=== PATIENT | male | born 1960 | race Caucasian/White ===

== ENCOUNTER 2018-05-27 14:22 | Emergency (ER) | payer MEDICAID ==
[~2018-05-27] VITALS: Ht 172.7 cm; Wt 111.4 kg
[2018-05-27 15:18] LABS: BASOPHILS % (AUTO) 0.4 % (0-1); EOSINOPHILS # (AUTO) 0.2 X10'3 (0-0.9); EOSINOPHILS % (AUTO) 2.7 % (0-6); HEMATOCRIT 46.3 % (42.0-52.0); LYMPHOCYTES # (AUTO) 1.3 X10'3 (1.1-4.8); LYMPHOCYTES % (AUTO) 18.5 % (21-51); MEAN CORPUSCULAR HEMOGLOBIN 30.9 PG (27.0-31.0); MEAN CORPUSCULAR HGB CONC 34.5 g/dL (33.0-36.5); MEAN CORPUSCULAR VOLUME 89.7 FL (78-98); MEAN PLATELET VOLUME 7.6 FL (7.4-10.4); MONOCYTES # (AUTO) 0.5 X10'3 (0-0.9); MONOCYTES % (AUTO) 6.7 % (2-12); NEUTROPHILS # (AUTO) 4.9 X10'3 (1.8-7.7); NEUTROPHILS % (AUTO) 71.7 % (42-75); PLATELET COUNT 212 X10'3 (140-440); RED BLOOD COUNT 5.17 X10'6 (4.70-6.10); RED CELL DISTRIBUTION WIDTH 13.3 % (11.5-14.5); WHITE BLOOD COUNT 6.8 X10'3 (4.5-11.0)
[2018-05-27 15:32] LABS: PARTIAL THROMBOPLASTIN TIME 26 SECONDS (22-32); PROTHROMBIN TIME 10.2 SECONDS (9.0-12.0)
[2018-05-27 15:33] LABS: ALANINE AMINOTRANSFERASE 60 U/L (12-78); ALBUMIN 3.8 G/DL (3.4-5.0); ALKALINE PHOSPHATASE 136 IU/L (46-116); ANION GAP 11 (8-16); ASPARTATE AMINO TRANSFERASE 29 U/L (10-37); BILIRUBIN,TOTAL 0.7 MG/DL (0.1-1.0); BLOOD UREA NITROGEN 17 MG/DL (7-18); BUN/CREATININE RATIO 14.9 (5.4-32.0); CALCIUM 8.5 MG/DL (8.5-10.1); CHLORIDE 102 MMOL/L (99-107); CREATININE 1.14 MG/DL (0.60-1.10); GLUCOSE 301 MG/DL (70-104); POTASSIUM 3.2 MMOL/L (3.5-5.1); SODIUM 141 MMOL/L (135-145); TOTAL CARBON DIOXIDE 28.5 MMOL/L (24-32); TOTAL PROTEIN 7.5 G/DL (6.4-8.2); eGFR 66 ML/MIN
[2018-05-27 18:30] LABS: D-DIMER 0.56 MG/L FEU (0-0.50)
--- NOTE | 2018-05-27 19:29 | NUR ---
VAS CALLED BACK AT 19:28 [address] IN ROUTE TO HOSPITAL
[2018-05-27] MEDS ORDERED: HYDROcodone/acetaminophen 10/325mg tab PO ONE (19:30)
[2018-05-27 20:28] VITALS: BP 167/81
--- NOTE | 2018-05-27 20:31 | NUR ---
VAS IS IN ROOM
--- NOTE | 2018-05-27 20:33 | NUR ---
VASCULAR AT BEDSIDE WITH PT
== END 2018-05-27 21:24 | disposition home or self-care (01) ==
LOC: ER 14:23
DX: I82.813 Embolism and thrombosis of superficial veins of lower extremities, bilateral (principal); I10 Essential (primary) hypertension; J44.9 Chronic obstructive pulmonary disease, unspecified; E11.9 Type 2 diabetes mellitus without complications; Z88.1 Allergy status to other antibiotic agents; Z88.0 Allergy status to penicillin; Z88.8 Allergy status to other drugs, medicaments and biological substances
CPT/HCPCS: 36415; 71045; 80053; 83880; 84484; 85025; 85379; 85610; 85730; 93970; 99284

== ENCOUNTER 2018-06-13 12:29 | Outpatient (CLI) | payer MEDICAID | END 2018-06-13 23:59 | disposition home or self-care (01) | LOC: VAS 12:29 | PROVIDERS: ATTEND Pediatrics | DX: I80.00 Phlebitis and thrombophlebitis of superficial vessels of unspecified lower extremity (principal); I10 Essential (primary) hypertension; E11.9 Type 2 diabetes mellitus without complications; J44.9 Chronic obstructive pulmonary disease, unspecified; Z88.0 Allergy status to penicillin; Z88.6 Allergy status to analgesic agent; Z88.1 Allergy status to other antibiotic agents; Z88.2 Allergy status to sulfonamides | CPT/HCPCS: 93970 ==

== ENCOUNTER 2018-08-28 05:44 | Emergency (ER) | payer MEDICAID ==
[~2018-08-28] VITALS: Ht 172.7 cm; Wt 91.8 kg
[2018-08-28] MEDS ORDERED: morphine 4 MG/ML inj SYRINge IV ONE (07:05)
[2018-08-28] MEDS ORDERED: normal saline 1000ML IV soln IVB ONE (07:05)
[2018-08-28 08:32] LABS: BASOPHILS # (AUTO) 0.1 X10'3 (0-0.2); EOSINOPHILS # (AUTO) 0.1 X10'3 (0-0.9); EOSINOPHILS % (AUTO) 2.5 % (0-6); HEMATOCRIT 39.1 % (42.0-52.0); HEMOGLOBIN 13.8 g/dl (14.0-17.9); LYMPHOCYTES # (AUTO) 1.3 X10'3 (1.1-4.8); LYMPHOCYTES % (AUTO) 25.6 % (21-51); MEAN CORPUSCULAR HEMOGLOBIN 30.8 PG (27.0-31.0); MEAN CORPUSCULAR HGB CONC 35.3 g/dL (33.0-36.5); MEAN CORPUSCULAR VOLUME 87.3 FL (78-98); MEAN PLATELET VOLUME 7.7 FL (7.4-10.4); MONOCYTES # (AUTO) 0.4 X10'3 (0-0.9); MONOCYTES % (AUTO) 6.8 % (2-12); NEUTROPHILS # (AUTO) 3.3 X10'3 (1.8-7.7); NEUTROPHILS % (AUTO) 64.1 % (42-75); PLATELET COUNT 206 X10'3 (140-440); RED BLOOD COUNT 4.48 X10'6 (4.70-6.10); RED CELL DISTRIBUTION WIDTH 13.7 % (11.5-14.5); WHITE BLOOD COUNT 5.2 X10'3 (4.5-11.0)
[2018-08-28 08:44] LABS: ALANINE AMINOTRANSFERASE 61 U/L (12-78); ALBUMIN 3.4 G/DL (3.4-5.0); ALBUMIN/GLOBULIN RATIO 1.1 (1.1-1.5); ALKALINE PHOSPHATASE 142 IU/L (46-116); ANION GAP 9 (8-16); ASPARTATE AMINO TRANSFERASE 25 U/L (10-37); BILIRUBIN,TOTAL 0.8 MG/DL (0.1-1.0); BLOOD UREA NITROGEN 11 MG/DL (7-18); BUN/CREATININE RATIO 11.8 (5.4-32.0); CALCIUM 8.7 MG/DL (8.5-10.1); CHLORIDE 103 MMOL/L (99-107); CREATININE 0.93 MG/DL (0.60-1.10); GLUCOSE 367 MG/DL (70-104); POTASSIUM 3.9 MMOL/L (3.5-5.1); SODIUM 138 MMOL/L (135-145); TOTAL CARBON DIOXIDE 25.7 MMOL/L (24-32); TOTAL PROTEIN 6.4 G/DL (6.4-8.2); eGFR 83 ML/MIN
[2018-08-28] MEDS ORDERED: iohexol 300mg/ml 100ml inj. ONE (09:17)
[2018-08-28] MEDS ORDERED: ACET-3068 PO (11:30)
[2018-08-28 11:39] VITALS: BP 110/67
== END 2018-08-28 11:41 | disposition home or self-care (01) ==
LOC: ER 05:45
DX: K60.3 Anal fistula (principal); I10 Essential (primary) hypertension; J44.9 Chronic obstructive pulmonary disease, unspecified; E11.9 Type 2 diabetes mellitus without complications; Z88.0 Allergy status to penicillin; Z88.1 Allergy status to other antibiotic agents; Z88.8 Allergy status to other drugs, medicaments and biological substances; Z86.19 Personal history of other infectious and parasitic diseases
CPT/HCPCS: 36415; 72193; 80053; 85025; 96374; 99284; J2270; J7030; Q9967

== ENCOUNTER 2018-12-02 13:46 | Inpatient (IN) | payer MEDICAID ==
[~2018-12-02] VITALS: Ht 172.7 cm; Wt 106.8 kg
[2018-12-02 14:26] LABS: BASOPHILS % (AUTO) 0.7 % (0-1); EOSINOPHILS # (AUTO) 0.2 X10'3 (0-0.9); EOSINOPHILS % (AUTO) 4.5 % (0-6); HEMATOCRIT 45.4 % (42.0-52.0); HEMOGLOBIN 15.6 g/dl (14.0-17.9); LYMPHOCYTES % (AUTO) 21.6 % (21-51); MEAN CORPUSCULAR HEMOGLOBIN 32.1 PG (27.0-31.0); MEAN CORPUSCULAR HGB CONC 34.4 g/dL (33.0-36.5); MEAN CORPUSCULAR VOLUME 93.3 FL (78-98); MEAN PLATELET VOLUME 7.1 FL (7.4-10.4); MONOCYTES # (AUTO) 0.5 X10'3 (0-0.9); MONOCYTES % (AUTO) 10.1 % (2-12); NEUTROPHILS # (AUTO) 2.9 X10'3 (1.8-7.7); NEUTROPHILS % (AUTO) 63.1 % (42-75); PLATELET COUNT 262 X10'3 (140-440); RED BLOOD COUNT 4.86 X10'6 (4.70-6.10); RED CELL DISTRIBUTION WIDTH 15.3 % (11.5-14.5); WHITE BLOOD COUNT 4.6 X10'3 (4.5-11.0)
[2018-12-02 14:33] LABS: PARTIAL THROMBOPLASTIN TIME 27 SECONDS (22-32)
[2018-12-02 14:36] LABS: ALANINE AMINOTRANSFERASE 94 U/L (12-78); ALBUMIN 3.4 G/DL (3.4-5.0); ALBUMIN/GLOBULIN RATIO 0.9 (1.1-1.5); ALKALINE PHOSPHATASE 145 IU/L (46-116); ANION GAP 10 (8-16); ASPARTATE AMINO TRANSFERASE 42 U/L (10-37); BILIRUBIN,TOTAL 0.8 MG/DL (0.1-1.0); BLOOD UREA NITROGEN 15 MG/DL (7-18); BUN/CREATININE RATIO 17.9 (5.4-32.0); CALCIUM 8.5 MG/DL (8.5-10.1); CHLORIDE 107 MMOL/L (99-107); CREATININE 0.84 MG/DL (0.60-1.10); GLUCOSE 135 MG/DL (70-104); POTASSIUM 3.9 MMOL/L (3.5-5.1); SODIUM 142 MMOL/L (135-145); TOTAL CARBON DIOXIDE 24.6 MMOL/L (24-32); TOTAL PROTEIN 7.3 G/DL (6.4-8.2); eGFR > 90 ML/MIN
[2018-12-02] MEDS ORDERED: enoxaparin 100mg/ml syringe SUBCUT ONE (15:05)
[2018-12-02] MEDS ORDERED: morphine 2 MG/ML inj. syringe IV PRN ×2 (15:30)
[2018-12-02] MEDS ORDERED: HYDROcodone/acetaminophen 10/325mg tab PO PRN (15:30)
[2018-12-02] MEDS ORDERED: HYDROcodone/acetaminophen 5mg/325mg tablet PO PRN (15:30)
[2018-12-02] MEDS ORDERED: ondansetron/PF 4mg/2ml inj IV PRN (15:30)
[2018-12-02] MEDS ORDERED: magnesium hydroxide 30ml (MOM) UD suspension PO PRN (15:30)
[2018-12-02] MEDS ORDERED: acetaminophen 325mg tablet PO PRN ×2 (15:30)
[2018-12-02] MEDS ORDERED: mag hydrox/Alum hydrox/simeth 30ml oral suspension PO PRN (15:30)
[2018-12-02] MEDS ORDERED: CHOL100046 PO (15:39)
[2018-12-02] MEDS ORDERED: LISI40TA4 PO (15:39)
[2018-12-02] MEDS ORDERED: HYDR-4353 PO (15:39)
[2018-12-02] MEDS ORDERED: MECL-111 PO (15:39)
[2018-12-02] MEDS ORDERED: TIZA4TAB11 PO (15:39)
[2018-12-02] MEDS ORDERED: METO-411 PO (15:39)
[2018-12-02] MEDS ORDERED: AMLO10TA PO (15:39)
[2018-12-02] MEDS ORDERED: GLIP5TAB13 PO (15:39)
[2018-12-02] MEDS ORDERED: GABA-532 PO (15:39)
[2018-12-02] MEDS ORDERED: ALLO100T PO (15:39)
[2018-12-02] MEDS ORDERED: morphine 4 MG/ML inj SYRINge IV STA (15:42)
[2018-12-02] MEDS ORDERED: ondansetron/PF 4mg/2ml inj IV STA (15:42)
[2018-12-02 16:30] VITALS: BP 139/90
--- NOTE | 2018-12-02 16:30 | NUR ---
Patient in room ORTHO 4011. I have received report from AMARILYS LANDRY and had the opportunity to ask questions and assume patient care.
[2018-12-02 17:00] VITALS: BP 129/84
--- NOTE | 2018-12-02 18:15 | NUR ---
Patient in room ORTHO 4011. I have received report from Nicolle LANDRY and had the opportunity to ask questions and assume patient care. Pt is in room eating dinner. awaiting family arrival and to be discharged. pt agrees to inform me when family arrives
--- NOTE | 2018-12-02 18:15 | NUR ---
Problems reprioritized. Patient report given, questions answered & plan of care reviewed with LUZ MARIA LANDRY.
--- NOTE | 2018-12-02 19:00 | NUR ---
pt reported that his niece that was going to pick him up was unable to do so. another family member is coming from [place] to pick the pt up and will not be her until [id number]. will continue to monitor.
[2018-12-02 21:00] VITALS: BP 124/74
--- NOTE | 2018-12-02 22:01 | NUR ---
pt tried calling family. no answer from family. pt states "it should not take them three hours to get here." pt stated he talked to family around 1900. will continue to monitor and let MD know.
--- NOTE | 2018-12-02 22:34 | NUR ---
pt family went to [facility] to sweet pickle maker pt and are now on their way to [facility]. will continue to monitor. all of the pt's belongings have been gathered
--- NOTE | 2018-12-02 22:38 | NUR ---
pt's family is in the lobby. pt left 2237 via private vehicle with family back home. all tubes and lines were removed. belongings were all accounted for by pt. No medications, education given and discharge paperwork signed. pt knows to follow up with PCP in one week per MD. Pt stable and appropriate for DC.
== END 2018-12-02 22:40 | disposition home or self-care (01) | DRG 197 ==
LOC: ER 13:47 → ORTHO 4S 16:31
PROVIDERS: ADMIT Internal Medicine; ATTEND Internal Medicine
DX: I80.01 Phlebitis and thrombophlebitis of superficial vessels of right lower extremity (principal); E11.40 Type 2 diabetes mellitus with diabetic neuropathy, unspecified; I10 Essential (primary) hypertension; M10.9 Gout, unspecified; R03.0 Elevated blood-pressure reading, without diagnosis of hypertension; R74.0 Nonspecific elevation of levels of transaminase and lactic acid dehydrogenase [LDH]; J44.9 Chronic obstructive pulmonary disease, unspecified; Z83.3 Family history of diabetes mellitus; Z88.0 Allergy status to penicillin; Z88.8 Allergy status to other drugs, medicaments and biological substances; Z88.1 Allergy status to other antibiotic agents; Z86.718 Personal history of other venous thrombosis and embolism
CPT/HCPCS: 36415; 71045; 80053; 82948; 83880; 84484; 85025; 85610; 85730; 93005; 96372; 96374; 96375; 99285; G0378; J1650; J2270; J2405

== ENCOUNTER 2019-02-09 10:09 | Day surgery (SDC) | payer MEDICAID ==
[~2019-02-09] VITALS: Ht 172.7 cm; Wt 111.4 kg
[2019-02-09] VITALS (13 sets, daily range): BP systolic 112–141; BP diastolic 62–84
[~2019-02-09 10:09] MED LIST: ALLO100T PO; AMLO10TA PO; CHOL100046 PO; GABA-532 PO; GLIP5TAB13 PO; HYDR-4353 PO; LISI40TA4 PO; MECL-111 PO; METO-411 PO; TIZA4TAB11 PO
[2019-02-09] MEDS ORDERED: LORazepam 0.5 MG tablet PO PRN (10:40)
[2019-02-09] MEDS ORDERED: dextrose ORAL solution 15 GM/59 ML bottle PO PRN ×2 (10:40)
[2019-02-09] MEDS ORDERED: diphenhydrAMINE 25mg capsule PO PRN (10:40)
[2019-02-09] MEDS ORDERED: dextrose 50%-water 50ml dispensing syringe IV PRN ×2 (10:40)
[2019-02-09] MEDS ORDERED: nitroGLYCERIN 0.4mg SUBLingual tab SL PRN (10:40)
[2019-02-09] MEDS ORDERED: normal saline 1,000 ML IV SCH (10:40)
[2019-02-09] MEDS ORDERED: glucagon, human recombinant 1mg kit SUBCUT PRN (10:40)
[2019-02-09] MEDS ORDERED: MESSAGE TO PHARMACY PO ONE (10:40)
[2019-02-09] MEDS ORDERED: insulin Lispro (HumaLOG) vial - multi-dose SQ SCH (10:40)
[2019-02-09 11:06] LABS: BASOPHILS % (AUTO) 0.9 % (0-1); EOSINOPHILS # (AUTO) 0.2 X10'3 (0-0.9); EOSINOPHILS % (AUTO) 5.3 % (0-6); HEMATOCRIT 47.1 % (42.0-52.0); HEMOGLOBIN 16.2 g/dl (14.0-17.9); LYMPHOCYTES # (AUTO) 1.1 X10'3 (1.1-4.8); LYMPHOCYTES % (AUTO) 25.7 % (21-51); MEAN CORPUSCULAR HEMOGLOBIN 32.1 PG (27.0-31.0); MEAN CORPUSCULAR HGB CONC 34.5 g/dL (33.0-36.5); MEAN PLATELET VOLUME 7.8 FL (7.4-10.4); MONOCYTES # (AUTO) 0.4 X10'3 (0-0.9); NEUTROPHILS # (AUTO) 2.6 X10'3 (1.8-7.7); NEUTROPHILS % (AUTO) 59.1 % (42-75); PLATELET COUNT 212 X10'3 (140-440); RED BLOOD COUNT 5.06 X10'6 (4.70-6.10); RED CELL DISTRIBUTION WIDTH 13.5 % (11.5-14.5); WHITE BLOOD COUNT 4.3 X10'3 (4.5-11.0)
[2019-02-09 11:16] LABS: ALBUMIN 3.8 G/DL (3.4-5.0); ANION GAP 8 (8-16); BLOOD UREA NITROGEN 9 MG/DL (7-18); BUN/CREATININE RATIO 9.2 (5.4-32.0); CALCIUM 8.9 MG/DL (8.5-10.1); CHLORIDE 106 MMOL/L (99-107); CREATININE 0.98 MG/DL (0.60-1.10); GLUCOSE 175 MG/DL (70-104); SODIUM 141 MMOL/L (135-145); TOTAL CARBON DIOXIDE 26.8 MMOL/L (24-32); eGFR 79 ML/MIN
[2019-02-09 11:30] LABS: PARTIAL THROMBOPLASTIN TIME 26 SECONDS (22-32)
[2019-02-09] MEDS ORDERED: FURO-150 PO (11:32)
[2019-02-09] MEDS ORDERED: POTA10CA44 PO (11:32)
[2019-02-09] MEDS ORDERED: RIVA10TA PO (11:32)
[2019-02-09] MEDS ORDERED: iohexol 350MG/ML 100ml bottle IV ONE (11:57)
[2019-02-09] MEDS ORDERED: iohexol 350 MG/ML 50ML vial IV ONE (11:57)
[2019-02-09] MEDS ORDERED: LIDOcaine 1% (10mg/ml)w/preservative injection 20ml MDV ONE (11:57)
[2019-02-09] MEDS ORDERED: midazolam 2 mg/2 ml injection ONE (11:57)
[2019-02-09] MEDS ORDERED: fentaNYL/PF 50MCG/1 ML 2ML syringe ONE (11:57)
[2019-02-09] MEDS ORDERED: HYDROcodone/acetaminophen 5mg/325mg tablet PO PRN (13:10)
[2019-02-09] MEDS ORDERED: ondansetron/PF 4mg/2ml inj IV PRN (13:10)
[2019-02-09] MEDS ORDERED: OXAZEpam 15mg capsule PO PRN (13:15)
[2019-02-09] MEDS ORDERED: proCHLORperazine 10 MG/2 ml inj IV PRN (13:15)
[2019-02-09] MEDS: HYDROcodone/acetaminophen 10/325mg tab PO PRN ×2 (13:21→18:57)
[2019-02-09] MEDS ORDERED: insulin glargine (Lantus) pen - multi-dose SQ SCH (21:00)
== END 2019-02-09 19:30 | disposition home or self-care (01) ==
LOC: SSTAY O 10:09
PROVIDERS: ATTEND Internal Medicine Cardiovascular Disease
DX: R94.39 Abnormal result of other cardiovascular function study (principal); I25.10 Atherosclerotic heart disease of native coronary artery without angina pectoris; M19.90 Unspecified osteoarthritis, unspecified site; E11.9 Type 2 diabetes mellitus without complications; M10.9 Gout, unspecified; I10 Essential (primary) hypertension; E78.5 Hyperlipidemia, unspecified; J44.9 Chronic obstructive pulmonary disease, unspecified; Z87.891 Personal history of nicotine dependence; Z98.890 Other specified postprocedural states; Z79.899 Other long term (current) drug therapy; Z79.01 Long term (current) use of anticoagulants
CPT/HCPCS: 36415; 71046; 80048; 83036; 85025; 85610; 85730; 93458; 99152; 99153; C1769; J1644; J2001; J2250; J3010; J7030; Q0163; Q9967; A4620; A6258; C1760; J1815

== ENCOUNTER 2019-11-13 16:21 | Inpatient (IN) | payer MEDICAID ==
[~2019-11-13] VITALS: Ht 172.7 cm; Wt 101.0 kg
[~2019-11-13 16:21] MED LIST changes: +FURO-150 PO; -MECL-111 PO; +MECL-159 PO; +POTA10CA44 PO; +RIVA10TA PO
[2019-11-13 17:00] LABS: BASOPHILS % (AUTO) 0.2 % (0-1); EOSINOPHILS % (AUTO) 0 % (0-6); HEMATOCRIT 50.3 % (42.0-52.0); HEMOGLOBIN 17.4 g/dl (14.0-17.9); LYMPHOCYTES # (AUTO) 0.6 X10'3 (1.1-4.8); LYMPHOCYTES % (AUTO) 8.8 % (21-51); MEAN CORPUSCULAR HEMOGLOBIN 33.3 PG (27.0-31.0); MEAN CORPUSCULAR HGB CONC 34.5 g/dL (33.0-36.5); MEAN CORPUSCULAR VOLUME 96.6 FL (78-98); MEAN PLATELET VOLUME 6.7 FL (7.4-10.4); MONOCYTES # (AUTO) 0.3 X10'3 (0-0.9); PLATELET COUNT 176 X10'3 (140-440); RED BLOOD COUNT 5.21 X10'6 (4.70-6.10); RED CELL DISTRIBUTION WIDTH 14.8 % (11.5-14.5)
[2019-11-13 17:16] LABS: ALANINE AMINOTRANSFERASE 101 U/L (12-78); ALBUMIN 4.2 G/DL (3.4-5.0); ALBUMIN/GLOBULIN RATIO 1.1 (1.1-1.5); ALKALINE PHOSPHATASE 154 IU/L (46-116); AMYLASE 235 U/L (25-115); ANION GAP 20 (8-16); ASPARTATE AMINO TRANSFERASE 66 U/L (10-37); BILIRUBIN,TOTAL 1.5 MG/DL (0.1-1.0); BLOOD UREA NITROGEN 9 MG/DL (7-18); BUN/CREATININE RATIO 10.7 (5.4-32.0); CALCIUM 7.9 MG/DL (8.5-10.1); CHLORIDE 104 MMOL/L (99-107); CREATININE 0.84 MG/DL (0.60-1.10); GLUCOSE 207 MG/DL (70-104); POTASSIUM 3.9 MMOL/L (3.5-5.1); SODIUM 142 MMOL/L (135-145); TOTAL CARBON DIOXIDE 18.2 MMOL/L (24-32); TOTAL PROTEIN 8.2 G/DL (6.4-8.2); eGFR > 90 ML/MIN
[2019-11-13 17:36] LABS: LIPASE 4157 U/L (73-393)
[2019-11-13] MEDS ORDERED: morphine 4 MG/ML inj SYRINge IV ONE (19:20)
[2019-11-13] MEDS ORDERED: pantoprazole 40 MG vial IV ONE (19:20)
[2019-11-13] MEDS ORDERED: ondansetron/PF 4mg/2ml inj IV ONE (19:20)
[2019-11-13] MEDS ORDERED: normal saline 1000ML IV soln IVB ONE (19:20)
[2019-11-13 19:35] LABS: CLARITY,URINE CLEAR (Clear); COLOR,URINE YELLOW (Yellow); GLUCOSE, URINE 250 mg/dl (Neg); KETONES,URINE 40 mg/dl (Neg); LEUKOCYTE ESTERASE ,URINE NEGATIVE (Neg); NITRITES, URINE NEGATIVE (Neg); OCCULT BLOOD,URINE TRACE-INTACT (Neg); PROTEIN,URINE 100 mg/dl (Neg); UROBILINOGEN,URINE 0.2 E.U/dL (0.2-1.0)
[2019-11-13 19:51] LABS: UA COLLECTION TYPE URINAL
[2019-11-13 19:52] LABS: BACTERIA,URINE NONE SEEN /HPF (Neg); RBC,URINE 0-2 /HPF (0-2); SQUAMOUS EPITHELIAL CELL,UR FEW /LPF (FEW); WBC,URINE NONE SEEN /HPF (0-4)
[2019-11-13] MEDS ORDERED: iohexol 300mg/ml 100ml inj. ONE (19:59)
[2019-11-13] MEDS ORDERED: bisacodyl 10mg suppository rectal RC PRN (20:00)
[2019-11-13] MEDS ORDERED: HYDROmorphone 1 mg/ml syringe IV PRN ×2 (20:00→23:05)
[2019-11-13] MEDS ORDERED: magnesium Cl slow-release 64mg tablet PO PRN (20:00)
[2019-11-13] MEDS ORDERED: HYDROmorphone inj. 0.5 MG/0.5 ML DISP.SYRIN IV PRN ×2 (20:00→23:05)
[2019-11-13] MEDS ORDERED: haloperidol 5mg tablet PO PRN (20:00)
[2019-11-13] MEDS ORDERED: mag hydrox/Alum hydrox/simeth 30ml oral suspension PO PRN (20:00)
[2019-11-13] MEDS ORDERED: potassium CL 10mEq/100ml bag 100 ML IV PRN (20:00)
[2019-11-13] MEDS ORDERED: haloperidol lactate 5mg/ml inj IM PRN (20:00)
[2019-11-13] MEDS ORDERED: thiamine 100mg/ml 2ml inj. IV ONE (20:00)
[2019-11-13] MEDS ORDERED: magnesium 4gm in 100ml NS 100 ML IV PRN (20:00)
[2019-11-13] MEDS ORDERED: potassium Cl 20 mEq SR tablet PO PRN (20:00)
[2019-11-13] MEDS ORDERED: acetaminophen 325mg tablet PO PRN (20:00)
[2019-11-13] MEDS ORDERED: dextrose 50%-water 50ml dispensing syringe IV PRN (20:00)
[2019-11-13] MEDS ORDERED: LORazepam 2 mg/ml vial IV PRN (20:00)
[2019-11-13] MEDS ORDERED: magnesium 2GM in 50ml NS 50 ML IV PRN (20:00)
[2019-11-13] MEDS: K and/or MAG REPLACEMENT MC SCH (20:00)
[2019-11-13] MEDS ORDERED: ondansetron/PF 4mg/2ml inj IV PRN (20:00)
[2019-11-13] MEDS ORDERED: metoclopramide 5 mg/ml inj IV PRN (20:00)
[2019-11-13] MEDS ORDERED: magnesium hydroxide 30ml (MOM) UD suspension PO PRN (20:00)
[2019-11-13 20:28] LABS: HEMOGLOBIN A1C 8.8 % (4.5-6.2)
[2019-11-13 20:35] LABS: MAGNESIUM 1.6 MG/DL (1.5-2.4)
[2019-11-13] MEDS ORDERED: temazepam 15mg capsule PO PRN (21:00)
[2019-11-13] MEDS: normal saline 1000ml 1,000 ML IV SCH (21:03)
[2019-11-13 22:10] VITALS: BP 166/85
--- NOTE | 2019-11-13 22:10 | NUR ---
Received report from Luciana LANDRY from the ED. Patient arrived at 2210 on a wheelchair. Saline locked, room air, a/o, vss, no signs of distress will continue to monitor
[2019-11-13] MEDS ORDERED: furosemide 20MG tablet PO PRN (22:45)
[2019-11-13] MEDS ORDERED: thiamine inj. 100 MG, magnesium sulf injection 2 GM, MVI, adult No.4 with vit. K 10 ML ... IV SCH ×4 (23:45)
[2019-11-14] VITALS: BP 171/98
[2019-11-14] MEDS: tizanidine 4mg tablet PO SCH ×4 (00:01→23:53)
[2019-11-14] MEDS: HYDROcodone/acetaminophen 10/325mg tab PO PRN ×2 (00:09→23:58)
[2019-11-14 00:59] VITALS: BP 135/72
[2019-11-14 01:02] VITALS: BP 135/72
[2019-11-14] MEDS: LORazepam 1 MG tablet PO PRN ×2 (01:06→07:53)
--- NOTE | 2019-11-14 01:11 | NUR ---
[place] away from [place], and is an alcoholic who fell off the banner. Addendum: 11/14/19 at 0112 by Paige Mckeon RN Amended: Links added.
[2019-11-14] MEDS ORDERED: thiamine inj. 100 MG, magnesium sulf injection 2 GM, MVI, adult No.4 with vit. K 10 ML ... IV SCH ×4 (02:00)
[2019-11-14] MEDS: normal saline 1000ml 1,000 ML IV SCH ×3 (03:58→19:58)
[2019-11-14 05:34] LABS: PARTIAL THROMBOPLASTIN TIME 27 SECONDS (22-32)
[2019-11-14 05:47] LABS: ALANINE AMINOTRANSFERASE 68 U/L (12-78); ALBUMIN 3.3 G/DL (3.4-5.0); ALKALINE PHOSPHATASE 115 IU/L (46-116); ANION GAP 7 (8-16); ASPARTATE AMINO TRANSFERASE 44 U/L (10-37); BILIRUBIN,TOTAL 2.1 MG/DL (0.1-1.0); BLOOD UREA NITROGEN 8 MG/DL (7-18); BUN/CREATININE RATIO 9.4 (5.4-32.0); CALCIUM 6.9 MG/DL (8.5-10.1); CHLORIDE 106 MMOL/L (99-107); CHOL/HDL RATIO 3.3 (0.00-4.99); CHOLESTEROL 165 MG/DL (0-200); CREATININE 0.85 MG/DL (0.60-1.10); GLUCOSE 258 MG/DL (70-104); HDL CHOLESTEROL 50 MG/DL (35-60); LDL CHOLESTEROL 97 MG/DL (50-100); MAGNESIUM 1.5 MG/DL (1.5-2.4); PHOSPHORUS 2.4 MG/DL (2.3-4.5); POTASSIUM 3.6 MMOL/L (3.5-5.1); SODIUM 139 MMOL/L (135-145); TOTAL CARBON DIOXIDE 25.7 MMOL/L (24-32); TOTAL PROTEIN 6.5 G/DL (6.4-8.2); TRIGLYCERIDES 123 MG/DL (20-135); eGFR > 90 ML/MIN
[2019-11-14 06:00] LABS: BASOPHILS % (AUTO) 0.3 % (0-1); EOSINOPHILS % (AUTO) 0.1 % (0-6); HEMATOCRIT 42.9 % (42.0-52.0); HEMOGLOBIN 14.6 g/dl (14.0-17.9); LYMPHOCYTES # (AUTO) 0.6 X10'3 (1.1-4.8); LYMPHOCYTES % (AUTO) 11.2 % (21-51); MEAN CORPUSCULAR HEMOGLOBIN 32.6 PG (27.0-31.0); MEAN CORPUSCULAR VOLUME 95.9 FL (78-98); MONOCYTES # (AUTO) 0.4 X10'3 (0-0.9); NEUTROPHILS % (AUTO) 80.4 % (42-75); PLATELET COUNT 133 X10'3 (140-440); RED BLOOD COUNT 4.48 X10'6 (4.70-6.10); RED CELL DISTRIBUTION WIDTH 14.7 % (11.5-14.5)
--- NOTE | 2019-11-14 06:27 | NUR ---
Problems reprioritized. Patient report given, questions answered & plan of care reviewed with Erika LANDRY.
--- NOTE | 2019-11-14 06:31 | NUR ---
Patient in room JERED 347. I have received report from Valeri LANDRY and had the opportunity to ask questions and assume patient care.
[2019-11-14] MEDS: K and/or MAG REPLACEMENT MC SCH ×2 (06:43→20:00)
[2019-11-14 07:00] VITALS: BP 156/96
[2019-11-14] MEDS: multivitamins, therapeutics tablet PO SCH (07:52)
[2019-11-14] MEDS: potassium chloride 10mEq ER tablet PO SCH (07:52)
[2019-11-14] MEDS: gabapentin 300mg capsule PO SCH ×3 (07:52→21:51)
[2019-11-14] MEDS: rivaroxaban 10mg tablet PO SCH (07:53)
[2019-11-14] MEDS: metoprolol succinate 25mg (24-HOUR) SR. Tablet PO SCH (07:54)
[2019-11-14] MEDS: thiamine 100mg tablet PO SCH (07:54)
[2019-11-14] MEDS: amLODIPine 5mg tablet PO SCH (07:55)
--- NOTE | 2019-11-14 08:58 | NUR ---
PAGER ID: [phone] MESSAGE: Jason Larson [id number]- Pt needs hyper/hypo protocol establish. Glucose check this NOC/AM 257/219. Thank you. Erika
[2019-11-14] MEDS ORDERED: pneumococcal 23-VAL P-sac vacc 25 mcg/0.5ml vial IMVAC ONE (10:00)
[2019-11-14] MEDS: lisinopril 20mg tablet PO SCH (10:01)
[2019-11-14] MEDS ORDERED: dextrose 50%-water 50ml dispensing syringe IV PRN ×2 (11:15)
[2019-11-14] MEDS ORDERED: dextrose ORAL solution 15 GM/59 ML bottle PO PRN ×2 (11:15)
[2019-11-14] MEDS ORDERED: glucagon, human recombinant 1mg kit SUBCUT PRN (11:15)
[2019-11-14] MEDS ORDERED: MESSAGE TO PHARMACY PO ONE (11:15)
[2019-11-14] MEDS: ipratropium/albuterol 3ml nebule NEB PRN ×2 (11:59→14:57)
[2019-11-14 12:00] VITALS: BP 126/84
--- NOTE | 2019-11-14 12:23 | NUR ---
Nutrition consult re: acute pancreatitis, possible TPN for nutritional support. Pt admit with EtOH pancreatitis, lipase 4157 and amylase 235 on admit. Pt currently NPO. TPN not indicated unless expected prolonged NPO status (greater than 7 days), MD notified. Pt would benefit from PO diet advancement to low fat as medically indicated. Pt with T2DM, current A1c is 8.8%. Attempted visit with pt at bedside however pt sleeping and did not wake with verbal cues. Written pancreatitis and diabetes nutrition therapy education left at bedside with RD contact information. Pt takes PO anti-diabetic and recently started on insulin per H&P. Will continue to follow. Addendum: 11/14/19 at [address] Amended: Links added.
[2019-11-14] MEDS: insulin Lispro (HumaLOG) vial - multi-dose SQ SCH (12:29)
[2019-11-14 12:41] LABS: LIPASE 1951 U/L (73-393)
--- NOTE | 2019-11-14 13:30 | NUR ---
Pt refused his 1300 gabapentin, he stated to come back later because he was just repositioned (Q2hr turn) and was painful. Wanted take it later. Addendum: 11/14/19 at 1555 by Erika Vanegas RN wrong pt
--- NOTE | 2019-11-14 18:31 | NUR ---
Problems reprioritized. Patient report given, questions answered & plan of care reviewed with Paige LANDRY.
--- NOTE | 2019-11-14 18:35 | NUR ---
Patient in room JERED 358. I have received report from Erika Santos and had the opportunity to ask questions and assume patient care.
[2019-11-14 20:00] VITALS: BP 138/89
[2019-11-14] MEDS: [UNRECOGNIZED DRUG - REMARK] PO SCH (20:00)
[2019-11-14] MEDS: insulin glargine (Lantus) pen - multi-dose SQ SCH (21:50)
[2019-11-15] VITALS: BP 142/87
[2019-11-15 06:01] LABS: BASOPHILS % (AUTO) 0.6 % (0-1); EOSINOPHILS # (AUTO) 0.2 X10'3 (0-0.9); EOSINOPHILS % (AUTO) 2.7 % (0-6); HEMATOCRIT 41.6 % (42.0-52.0); HEMOGLOBIN 14.3 g/dl (14.0-17.9); LYMPHOCYTES # (AUTO) 0.8 X10'3 (1.1-4.8); LYMPHOCYTES % (AUTO) 15.3 % (21-51); MEAN CORPUSCULAR HGB CONC 34.3 g/dL (33.0-36.5); MEAN PLATELET VOLUME 7.3 FL (7.4-10.4); MONOCYTES # (AUTO) 0.4 X10'3 (0-0.9); NEUTROPHILS # (AUTO) 4.1 X10'3 (1.8-7.7); NEUTROPHILS % (AUTO) 74.4 % (42-75); PLATELET COUNT 114 X10'3 (140-440); RED BLOOD COUNT 4.33 X10'6 (4.70-6.10); RED CELL DISTRIBUTION WIDTH 14.9 % (11.5-14.5); WHITE BLOOD COUNT 5.5 X10'3 (4.5-11.0)
--- NOTE | 2019-11-15 06:05 | NUR ---
Problems reprioritized. Patient report given, questions answered & plan of care reviewed with Marita LANDRY.
[2019-11-15 06:11] LABS: ALANINE AMINOTRANSFERASE 55 U/L (12-78); ALBUMIN/GLOBULIN RATIO 0.9 (1.1-1.5); ALKALINE PHOSPHATASE 124 IU/L (46-116); ANION GAP 9 (8-16); ASPARTATE AMINO TRANSFERASE 50 U/L (10-37); BILIRUBIN,TOTAL 2.2 MG/DL (0.1-1.0); BLOOD UREA NITROGEN 8 MG/DL (7-18); BUN/CREATININE RATIO 9.9 (5.4-32.0); CALCIUM 7.1 MG/DL (8.5-10.1); CHLORIDE 104 MMOL/L (99-107); CREATININE 0.81 MG/DL (0.60-1.10); GLUCOSE 128 MG/DL (70-104); MAGNESIUM 1.6 MG/DL (1.5-2.4); PHOSPHORUS 1.7 MG/DL (2.3-4.5); POTASSIUM 3.3 MMOL/L (3.5-5.1); SODIUM 139 MMOL/L (135-145); TOTAL CARBON DIOXIDE 26.1 MMOL/L (24-32); TOTAL PROTEIN 6.4 G/DL (6.4-8.2); eGFR > 90 ML/MIN
[2019-11-15] MEDS: normal saline 1000ml 1,000 ML IV SCH ×4 (06:17→21:48)
[2019-11-15] MEDS: ipratropium/albuterol 3ml nebule NEB PRN (06:46)
--- NOTE | 2019-11-15 06:58 | NUR ---
Patient in room JERED 358. I have received report from GRIS Gibson and had the opportunity to ask questions and assume patient care.
[2019-11-15 07:25] VITALS: BP 120/81
[2019-11-15] MEDS: K and/or MAG REPLACEMENT MC SCH ×2 (08:00→20:00)
[2019-11-15] MEDS: HYDROcodone/acetaminophen 10/325mg tab PO PRN ×3 (08:10→21:30)
[2019-11-15] MEDS: gabapentin 300mg capsule PO SCH ×3 (08:10→21:25)
[2019-11-15] MEDS: multivitamins, therapeutics tablet PO SCH (08:10)
[2019-11-15] MEDS: thiamine 100mg tablet PO SCH (08:10)
[2019-11-15] MEDS: potassium chloride 10mEq ER tablet PO SCH (08:10)
[2019-11-15] MEDS: amLODIPine 5mg tablet PO SCH (08:11)
[2019-11-15] MEDS: tizanidine 4mg tablet PO SCH ×2 (08:11→15:25)
[2019-11-15] MEDS: metoprolol succinate 25mg (24-HOUR) SR. Tablet PO SCH (08:11)
[2019-11-15] MEDS: rivaroxaban 10mg tablet PO SCH (08:12)
[2019-11-15] MEDS: lisinopril 20mg tablet PO SCH (08:12)
[2019-11-15] MEDS ORDERED: HYDROmorphone 1 mg/ml syringe IV PRN (10:48)
[2019-11-15 11:00] VITALS: BP 129/81
[2019-11-15] MEDS: potassium CL 10mEq/100ml bag 100 ML IV PRN ×4 (12:04→16:50)
--- NOTE | 2019-11-15 18:35 | NUR ---
Problems reprioritized. Patient report given, questions answered & plan of care reviewed with GRIS Kahn.
--- NOTE | 2019-11-15 18:40 | NUR ---
Patient in room JERED 358. I have received report from LONNIE LANDRY and had the opportunity to ask questions and assume patient care.
[2019-11-15 20:00] VITALS: BP 153/89
[2019-11-15] MEDS: [UNRECOGNIZED DRUG - REMARK] PO SCH (20:00)
[2019-11-15] MEDS: insulin glargine (Lantus) pen - multi-dose SQ SCH (21:00)
[2019-11-16] VITALS: BP 134/87
[2019-11-16] MEDS: tizanidine 4mg tablet PO SCH ×3 (00:43→16:32)
[2019-11-16] MEDS: HYDROcodone/acetaminophen 10/325mg tab PO PRN ×3 (04:49→20:30)
[2019-11-16] MEDS: normal saline 1000ml 1,000 ML IV SCH ×2 (04:56→13:48)
--- NOTE | 2019-11-16 06:09 | NUR ---
Problems reprioritized. Patient report given, questions answered & plan of care reviewed with LONNIE LANDRY.
--- NOTE | 2019-11-16 06:10 | NUR ---
Patient in room JERED 358. I have received report from GRIS Kahn and had the opportunity to ask questions and assume patient care.
[2019-11-16 06:14] LABS: BASOPHILS % (AUTO) 0.5 % (0-1); EOSINOPHILS # (AUTO) 0.2 X10'3 (0-0.9); EOSINOPHILS % (AUTO) 3.6 % (0-6); HEMATOCRIT 43.8 % (42.0-52.0); HEMOGLOBIN 15.1 g/dl (14.0-17.9); LYMPHOCYTES # (AUTO) 0.7 X10'3 (1.1-4.8); MEAN CORPUSCULAR HEMOGLOBIN 33.2 PG (27.0-31.0); MEAN CORPUSCULAR HGB CONC 34.4 g/dL (33.0-36.5); MEAN CORPUSCULAR VOLUME 96.5 FL (78-98); MEAN PLATELET VOLUME 7.5 FL (7.4-10.4); MONOCYTES # (AUTO) 0.4 X10'3 (0-0.9); MONOCYTES % (AUTO) 6.7 % (2-12); NEUTROPHILS # (AUTO) 4.3 X10'3 (1.8-7.7); NEUTROPHILS % (AUTO) 77.2 % (42-75); PLATELET COUNT 145 X10'3 (140-440); RED BLOOD COUNT 4.54 X10'6 (4.70-6.10); RED CELL DISTRIBUTION WIDTH 14.6 % (11.5-14.5); WHITE BLOOD COUNT 5.5 X10'3 (4.5-11.0)
[2019-11-16 06:54] LABS: ALANINE AMINOTRANSFERASE 50 U/L (12-78); ALBUMIN/GLOBULIN RATIO 0.8 (1.1-1.5); ALKALINE PHOSPHATASE 134 IU/L (46-116); ANION GAP 16 (8-16); ASPARTATE AMINO TRANSFERASE 46 U/L (10-37); BILIRUBIN,TOTAL 1.8 MG/DL (0.1-1.0); BLOOD UREA NITROGEN 9 MG/DL (7-18); BUN/CREATININE RATIO 10.8 (5.4-32.0); CALCIUM 7.7 MG/DL (8.5-10.1); CHLORIDE 102 MMOL/L (99-107); CREATININE 0.83 MG/DL (0.60-1.10); GLUCOSE 110 MG/DL (70-104); MAGNESIUM 1.6 MG/DL (1.5-2.4); PHOSPHORUS 1.8 MG/DL (2.3-4.5); POTASSIUM 3.3 MMOL/L (3.5-5.1); SODIUM 137 MMOL/L (135-145); TOTAL PROTEIN 6.9 G/DL (6.4-8.2); eGFR > 90 ML/MIN
[2019-11-16 07:00] VITALS: BP 146/87
[2019-11-16] MEDS: K and/or MAG REPLACEMENT MC SCH ×2 (08:00→20:00)
[2019-11-16] MEDS: potassium chloride 10mEq ER tablet PO SCH (08:23)
[2019-11-16] MEDS: gabapentin 300mg capsule PO SCH ×3 (08:23→20:30)
[2019-11-16] MEDS: multivitamins, therapeutics tablet PO SCH (08:24)
[2019-11-16] MEDS: lisinopril 20mg tablet PO SCH (08:24)
[2019-11-16] MEDS: rivaroxaban 10mg tablet PO SCH (08:24)
[2019-11-16] MEDS: thiamine 100mg tablet PO SCH (08:24)
[2019-11-16] MEDS: metoprolol succinate 25mg (24-HOUR) SR. Tablet PO SCH (08:24)
[2019-11-16] MEDS: amLODIPine 5mg tablet PO SCH (08:24)
[2019-11-16] MEDS: potassium Cl 20 mEq SR tablet PO PRN ×2 (08:25→14:10)
[2019-11-16 12:00] VITALS: BP 124/79
--- NOTE | 2019-11-16 14:54 | NUR ---
F/u (11/15): Pt seen by MOODY for verbal DM/pancreatitis ed review. MOODY encouraged etoh limitations, pancreatitis guidelines, and importance of optimal Glu for long-term health. Addendum: 11/16/19 at [address] Amended: Links added.
[2019-11-16] MEDS ORDERED: pneumococcal 23-VAL P-sac vacc 25 mcg/0.5ml vial IMVAC ONE (16:40)
[2019-11-16 18:00] VITALS: BP 152/90
--- NOTE | 2019-11-16 18:01 | NUR ---
Problems reprioritized. Patient report given, questions answered & plan of care reviewed with GRIS Kanh.
--- NOTE | 2019-11-16 18:30 | NUR ---
Patient in room JERED 358. I have received report from LONNIE LANDRY and had the opportunity to ask questions and assume patient care.
[2019-11-16] MEDS: insulin Lispro (HumaLOG) vial - multi-dose SQ SCH (19:16)
[2019-11-16] MEDS: [UNRECOGNIZED DRUG - REMARK] PO SCH (20:00)
[2019-11-16] MEDS: insulin glargine (Lantus) pen - multi-dose SQ SCH (21:30)
[2019-11-17] VITALS: BP 141/87
[2019-11-17] MEDS: tizanidine 4mg tablet PO SCH ×2 (01:01→08:00)
--- NOTE | 2019-11-17 03:00 | NUR ---
PATIENT VERY RESTLESS, GETTING IN AND OUT OF BED THEN TRIED TO GO OUT OF THE FLOOR AND SAID HE WANTED TO BUY A SODA POP SO PATIENT GIVEN DIET PEPSI. THEN HE WANTED TO GO HOME AMA, CHARGE NURSE TALKED TO PATIENT TO STAY BECAUSE IT IS NOT SAFE FOR HIM TO GO OUT AT NIGHT TIME. PATIENT STAYED BUT STILL VERY RESTLESS AND ANXIOUS.
[2019-11-17] MEDS: normal saline 1000ml 1,000 ML IV SCH ×2 (03:58→11:58)
[2019-11-17] MEDS: HYDROcodone/acetaminophen 10/325mg tab PO PRN (04:23)
[2019-11-17] MEDS ORDERED: haloperidol lactate 5mg/ml inj IM PRN (04:40)
[2019-11-17] MEDS ORDERED: LORazepam 2 mg/ml vial IV PRN (04:40)
[2019-11-17] MEDS ORDERED: LORazepam 1 MG tablet PO PRN (04:40)
[2019-11-17] MEDS ORDERED: haloperidol 5mg tablet PO PRN (04:40)
--- NOTE | 2019-11-17 04:50 | NUR ---
PAGEOmar ACKERMAN AND WAS INFORMED OF PATIENT'S BEHAVIOR WITH ORDER TO PUT PATIENT BACK ON MILD ETOH WITHDRAWAL PROTOCOL.
[2019-11-17 05:38] LABS: HEMOGLOBIN 15.9 g/dl (14.0-17.9); LYMPHOCYTES # (AUTO) 0.4 X10'3 (1.1-4.8); MONOCYTES # (AUTO) 0.4 X10'3 (0-0.9); NEUTROPHILS # (AUTO) 4.4 X10'3 (1.8-7.7); WHITE BLOOD COUNT 5.2 X10'3 (4.5-11.0)
[2019-11-17 05:40] LABS: BASOPHILS % (AUTO) 0.3 % (0-1); EOSINOPHILS % (AUTO) 0.8 % (0-6); HEMATOCRIT 45.2 % (42.0-52.0); LYMPHOCYTES % (AUTO) 7.7 % (21-51); MEAN CORPUSCULAR HEMOGLOBIN 33.7 PG (27.0-31.0); MEAN CORPUSCULAR HGB CONC 35.2 g/dL (33.0-36.5); MEAN CORPUSCULAR VOLUME 95.8 FL (78-98); MEAN PLATELET VOLUME 6.8 FL (7.4-10.4); MONOCYTES % (AUTO) 7.2 % (2-12); PLATELET COUNT 183 X10'3 (140-440); RED BLOOD COUNT 4.72 X10'6 (4.70-6.10); RED CELL DISTRIBUTION WIDTH 14.3 % (11.5-14.5)
[2019-11-17 05:45] LABS: ALANINE AMINOTRANSFERASE 61 U/L (12-78); ALBUMIN 3.7 G/DL (3.4-5.0); ALBUMIN/GLOBULIN RATIO 0.8 (1.1-1.5); ALKALINE PHOSPHATASE 168 IU/L (46-116); ANION GAP 14 (8-16); ASPARTATE AMINO TRANSFERASE 58 U/L (10-37); BILIRUBIN,TOTAL 1.6 MG/DL (0.1-1.0); BLOOD UREA NITROGEN 7 MG/DL (7-18); BUN/CREATININE RATIO 8.3 (5.4-32.0); CALCIUM 8.4 MG/DL (8.5-10.1); CHLORIDE 103 MMOL/L (99-107); CREATININE 0.84 MG/DL (0.60-1.10); GLUCOSE 192 MG/DL (70-104); MAGNESIUM 1.6 MG/DL (1.5-2.4); PHOSPHORUS 1.9 MG/DL (2.3-4.5); POTASSIUM 3.6 MMOL/L (3.5-5.1); SODIUM 137 MMOL/L (135-145); TOTAL CARBON DIOXIDE 19.8 MMOL/L (24-32); TOTAL PROTEIN 8.1 G/DL (6.4-8.2); eGFR > 90 ML/MIN
--- NOTE | 2019-11-17 06:30 | NUR ---
Problems reprioritized. Patient report given, questions answered & plan of care reviewed with MAKAYLA RN.
--- NOTE | 2019-11-17 07:07 | NUR ---
Patient in room JERED 358. I have received report from VIDHYA LANDRY and had the opportunity to ask questions and assume patient care.
[2019-11-17 08:00] VITALS: BP 165/91
[2019-11-17] MEDS: K and/or MAG REPLACEMENT MC SCH (08:00)
[2019-11-17] MEDS: insulin Lispro (HumaLOG) vial - multi-dose SQ SCH (08:07)
[2019-11-17] MEDS: thiamine 100mg tablet PO SCH (08:08)
[2019-11-17] MEDS: potassium chloride 10mEq ER tablet PO SCH (08:09)
[2019-11-17] MEDS: rivaroxaban 10mg tablet PO SCH (08:09)
[2019-11-17] MEDS: amLODIPine 5mg tablet PO SCH (08:10)
[2019-11-17] MEDS: gabapentin 300mg capsule PO SCH (08:10)
[2019-11-17] MEDS: multivitamins, therapeutics tablet PO SCH (08:10)
[2019-11-17] MEDS: lisinopril 20mg tablet PO SCH (08:10)
[2019-11-17] MEDS: metoprolol succinate 25mg (24-HOUR) SR. Tablet PO SCH (08:12)
[2019-11-17 10:28] LABS: LIPASE 548 U/L (73-393)
--- NOTE | 2019-11-17 10:44 | NUR ---
PAGER ID: [phone] MESSAGE: Liam Surg [id number] re: [id number] Marsha Patient lipase was 548 today. Patient not complaining of any abdomen pain. did you want to advance diet?
[2019-11-17 12:00] VITALS: BP 164/105
--- NOTE | 2019-11-17 13:40 | NUR ---
Patient left AMA, IV was taken out at this time. Canula was whole and intact upon removal. Patient left with all belongings and stated "I will follow up with my primary" Patient instructed to ease back into his diet.
== END 2019-11-17 13:26 | disposition left against medical advice (07) | DRG 282 ==
LOC: ER 16:22 → ED HOLD 19:58 → SUR 3N 22:10
PROVIDERS: ADMIT Family Medicine; ATTEND Internal Medicine
PROC: 3E0234Z Introduction of Serum, Toxoid and Vaccine into Muscle, Percutaneous Approach (ICD-10-PCS; principal; 2019-11-16)
DX: K85.20 Alcohol induced acute pancreatitis without necrosis or infection (principal); J44.9 Chronic obstructive pulmonary disease, unspecified; I10 Essential (primary) hypertension; E78.5 Hyperlipidemia, unspecified; E11.9 Type 2 diabetes mellitus without complications; N40.0 Benign prostatic hyperplasia without lower urinary tract symptoms; F10.20 Alcohol dependence, uncomplicated; G47.33 Obstructive sleep apnea (adult) (pediatric); K21.9 Gastro-esophageal reflux disease without esophagitis; Z88.8 Allergy status to other drugs, medicaments and biological substances; Z88.0 Allergy status to penicillin; Z86.718 Personal history of other venous thrombosis and embolism; Z87.19 Personal history of other diseases of the digestive system; Z90.49 Acquired absence of other specified parts of digestive tract; Z23 Encounter for immunization
CPT/HCPCS: 36415; 74177; 80053; 80061; 81001; 82150; 82948; 83036; 83690; 83735; 84100; 85025; 85610; 85730; 87081; 90732; 94640; 94660; 94760; 96374; 96375; 99285; C9113; G0378; J1170; J1815; J2270; J2405; J3411; J3475; J3480; J7030; J7060; Q9967